=== PATIENT | male | born 1960 | race Caucasian/White ===

== ENCOUNTER → 2016-07-09 | Outpatient (CLI) | payer OTHER ==
[~2016-07-09] MED LIST: ASPI-435 PO; ATOR-26 PO; CYCL10TA6 PO; HYDR-5688 PO; LOSA1TAB PO; METO25TA3 PO; NITR0.4D6 SL; OMEP20CA9 PO
== END | disposition home or self-care (01) ==
LOC: C.LAB 03:00
DX: Z02.83 Encounter for blood-alcohol and blood-drug test (principal)

== ENCOUNTER → 2017-06-13 | Outpatient (CLI) | payer OTHER ==
--- NOTE | 2017-06-13 12:46 | DIAGNOSTIC IMAGING REPORT ---
LEFT TIBIA AND FIBULA 2 VIEWS CLINICAL HISTORY: Left leg injury. Finding: AP and lateral views of the left tibia and fibula are obtained. No prior studies are available for comparison at the time of dictation. The skeletal structures are well mineralized. There is no radiographic evidence of left tibial or fibular fracture. The ankle joint is grossly maintained. The overlying soft tissues are within normal limits. IMPRESSION: There is no radiographic evidence of left tibial or fibular fracture. Electronically signed by: Roe Stewart M.D. 06/13/2017 12:44 PM Dictated Date/Time: 06/13/2017 12:43 PM
--- NOTE | 2017-06-13 12:47 | DIAGNOSTIC IMAGING REPORT ---
L KNEE 1 OR 2 VIEWS ROUTINE CLINICAL HISTORY: Left lower leg injury. COMPARISON: Knee radiograph June 03, 2013. FINDINGS: Note is made of a 3.2 cm juxtacortical sclerotic lesion within the distal medial metadiaphysis of the left femur which is similar to exam of October. This has benign imaging characteristics. This has a narrow zone of transition. Alignment of the left knee is anatomic. No acute fracture is identified. There is a large left knee joint effusion without lipohemarthrosis. Joint spaces are preserved. IMPRESSION: 1. No acute fracture. 2. Large left knee joint effusion. 3. No change in a 3.2 cm sclerotic lesion within the distal medial metadiaphysis of the left femur since exam of June 03, 2013. Stability and imaging appearance consistent with a benign etiology. Electronically signed by: Harjinder Roman M.D. 06/13/2017 12:46 PM Dictated Date/Time: 06/13/2017 12:43 PM
== END | disposition home or self-care (01) ==
LOC: C.RAD1850 12:23
PROVIDERS: ATTEND Family Medicine
DX: S89.92XA Unspecified injury of left lower leg, initial encounter (principal); X58.XXXA Exposure to other specified factors, initial encounter

== ENCOUNTER 2025-02-01 14:31 | Inpatient (IN) ==
[2025-02-01] MEDS: NITROGLYCERIN SL 0.4 MG/TAB TAB SL PRN (14:52)
[2025-02-01] MEDS: ASPIRIN CHEW 324 MG PO STA (14:52)
[2025-02-01 15:00] LABS: Hematocrit (blood only) 49.0 % (42.0-52.0); Hemoglobin 17.6 g/dl (14.0-18.0); Immature Granulocytes # (auto) 0.02 K/uL (0.01-0.20); Immature Granulocytes % (auto) 0.3 %; Mean Corpuscular Hemoglobin 32.0 pg (25.0-34.0); Mean Corpuscular Volume 89.1 fL (80.0-100.0); Platelet Count 203 K/uL (130-400); RDW Standard Deviation 43.5 fL (36.4-46.3); Red Blood Count 5.50 M/uL (4.70-6.10); White Blood Count 7.64 K/ul (4.8-10.8)
--- NOTE | 2025-02-01 15:13 | XRay Report ---
XR chest 2V PA/lateral CLINICAL HISTORY: Chest pain, nonspecific COMPARISON STUDY: 12/14/2019 FINDINGS: Heart size and pulmonary vasculature are normal. No consolidation or pleural effusion. No p neumothorax. No displaced rib fractures seen. IMPRESSION: No acute findings. ACT 112: Negative or not required by law. Electronically signed by: Don Way M.D. 02/01/2025 3:11 PM
[2025-02-01 15:18] LABS: Alanine Aminotransferase 19.0 U/L (7-52); Albumin Globulin Ratio 1.0 (0.9-2); Alkaline Phosphatase 78.0 U/L (34-104); Anion Gap 9.0 (3-11); Bilirubin,Total 0.8 mg/dl (0.2-1.0); Blood Urea Nitrogen 12.0 mg/dl (6-23); Calcium 9.3 mg/dl (8.6-10.3); Carbon Dioxide 28.0 mmol/L (21-32); Chloride 91.0 mmol/L (98-107); Creatinine Clr Calc Pharmacy 130.6 ml/min; Globulin 3.9 gm/dl (2.5-4.0); Glucose 103.0 mg/dl (70-99(Fasting)); Lipase 22.0 U/L (11-82); Potassium 4.3 mmol/L (3.5-5.1); Sodium 128.0 mmol/L (136-145); Total Protein 7.9 gm/dl (6.0-8.3)
--- NOTE | 2025-02-01 15:35 | Emergency Department Note ---
Impression & Plan Unstable angina, Elevated d-dimer, Complicated urinary tract infection, Gross hematuria ED Provider Note NAME: ISABEL MONTANO AGE: 64 SEX: M : 1960 ARRIVES VIA: Walk-In INFORMANT: Patient, ED PROVIDER(S): Audi Leonardo DO CHIEF COMPLAINT: chest pain HPI: This is a 64-year-old male with the PMHx of CAD s/p PCI, hypertension, hyperlipidemia, alcohol use disorder, tobacco use disorder presenting to [facility] for further evaluation of chest pain. The patient reports he has had left- sided chest pain that is sharp and stabbing since Friday. Patient reports that this occurs usually with exertional activities. He states with rest the pain improves. He reports mild shortness of breath associated with this. He also notes that he has had urinary frequency and dysuria. Noticed blood in his urine today. They deny fever or chills. No cough or congestion. They deny abdominal pain, nausea and vomiting. No recent changes in bowel movements. Patient denies recent changes in medications or OTC supplements. Patient offers no other complaints, today. ADDITIONAL HISTORY OBTAINED: Per HPI Chronic Medical/Social Conditions Affecting Care: Per HPI PAST MEDICAL HISTORY: See Below PAST SURGICAL HISTORY: See Below FAMILY HISTORY: See Below SOCIAL HISTORY: See Below HOME MEDICATIONS: See Below ALLERGIES: See Below VITALS: See Below PHYSICAL EXAMINATION: GENERAL: Sitting up in bed, alert, well appearing, well nourished, no distress, non-toxic EYE EXAM: normal conjunctiva. PERRL and EOM's grossly intact. OROPHARYNX: no exudate, no erythema, lips, buccal mucosa, and tongue normal and mucous membranes are moist NECK: supple, no nuchal rigidity, no adenopathy, non-tender LUNGS: Clear to auscultation. Normal chest wall mechanics HEART: no murmurs, tachycardic rate, regular rhythm, 2+ distal pulses, warm and well perfused ABDOMEN: abdomen soft, non-tender, no masses, no rebound or guarding. BACK: Back is symmetrical on inspection and there is no deformity, no midline tenderness, no CVA tenderness. SKIN: no rashes and no bruising UPPER EXTREMITIES: upper extremities are grossly normal. LOWER EXTREMITIES: trace lower extremity edema NEURO EXAM: Normal sensorium, GCS 15, normal speech, no gross weakness of arms, no gross weakness of legs. MEDICAL DECISION MAKING: Differential diagnoses includes but not limited to ACS, stable vs unstable angina, dysrhythmia, viral URI, pneumonia, pericarditis, pneumothorax, costochondritis, MSK strain, PE, hypertensive emergency, psychological causes, esophageal reflux, gastritis, Complicated UTI, kidney stone In summary, this is a 64 year old male who presented with chest pain. Differential as above. Nursing notes and pertinent past medical records reviewed. Vital signs reviewed and the patient is mildly hypertensive and tachycardic but otherwise afebrile and hemodynamically stable. History and presentation revealed prior history of CAD with an inferior STEMI that required PCI. Patient notes that his symptoms are not similar but he is concerned that this may be related to his heart. Unclear if he is compliant with his medications. Based on his urinary symptoms, I am suspicious for a complicated UTI. He has no CVA tenderness or evidence of peritonitis that would make necessary for CT abdomen/pelvis. Physical examination revealed as above. As a result of my initial evaluation, plan for serial troponin levels and EKGs. Will load with aspirin. Patient was given sublingual nitroglycerin on arrival to the emergency department. Diagnostics interpreted by me include EKG and cardiac monitoring as listed below: -Cardiac Monitoring: An order was placed for continuous cardiac monitoring. The monitor shows a rate of 80-110 with regular rhythm. -ECG: EKG independently interpreted by me reveals sinus tachycardia at a rate of 103 bpm. There are PACs present on this rhythm strip. No significant ST segment changes to suggest STEMI. Intervals are otherwise within normal limits. Patient completed laboratory studies and imaging. Results independently interpreted by me are stable hemoglobin. No anemia. No leukocytosis. Does have mild hyponatremia. Suspect he might be mildly dehydrated. Will provide gentle IV fluid bolus. Troponin was normal. Repeat EKG obtained as the patient was having further pain. Reveals sinus tachycardia at a rate of [address] segment changes to suggest STEMI. Intervals are otherwise within normal limits. I did consider the diagnosis of pulmonary embolism but he has no respiratory complaints. Do feel his symptoms are more related to unstable angina. Patient will likely be admitted but pending urinalysis for further screening of his hematuria that he has reported as well as urinary frequency. The patient's pain is relieved by sublingual nitroglycerin. He does have significant cardiovascular history. Given concerns for unstable angina, [facility] cardiology made aware of the patient and agrees with admission on telemetry. Patient will need to have serial troponins as well as EKGs. He was loaded with aspirin on arrival to the emergency department. The hospitalist team requested D-dimer testing. This was ordered and it was elevated. I ordered CT PE study. CT PE study was independently interpreted by me as negative for pulmonary embolism. Patient was started on low-dose heparin without bolus. Ultimately, the decision was made to admit the patient for unstable angina and complicated UTI with gross hematuria. I discussed the case with the hospitalist service via telephone/Tiger[employer] and they are agreeable to admit the patient to their services. Based on the above, including the patient's age, coexisting illnesses, labs, imaging, and exam findings the decision to treat as an inpatient. I discussed the patient with the hospitalist team who recommended admission to their services. They received the medications, treatments, interventions indicated above and their condition remained guarded. I discussed my findings with the patient and their family and they understand and agree with the treatment plan. All patient / family questions were answered to their satisfaction. Consults/Care Managements Discussions: Per [facility] ER treatment provided: See above Procedures:none Critical Care: I have personally spent 35 minutes of critical care time in direct management of this patient. This includes bedside care, interpretation of diagnostic studies, and testing, discussion with consultants, patient, and family members, and other require inpatient management activities. This 35 minutes is in excess of all separately billable procedures. The chart was completed utilizing [employer] Speech voice recognition software. Grammatical errors, random word insertions, pronoun errors, and incomplete sentences are an occasional consequence of this system due to software limitations, ambient noise, and hardware issues. Any formal questions or concerns about the content, text, or information contained within the body of this dictation should be directly addressed to the physician for clarification. Past Med/Surg History Problem List (Updated 02/02/25 @ 16:20 by Audi Leonardo DO) Gross hematuria (Acute) Complicated urinary tract infection (Acute) Elevated d-dimer (Acute) Unstable angina (Acute) Hyponatremia Hematuria UTI (urinary tract infection) Acute OK, inferior wall (Acute) Inferior OK (Chronic) Chest pain (Acute) Chest pain GERD (gastroesophageal reflux disease) Alcohol dependence Tobacco abuse Encounter for pre-operative examination Hypertension (Chronic) Coronary arteriosclerosis Heart disease (Chronic) Medical History H/O ventricular fibrillation post-op VF after cardiac cath (2014) converted with single ICD shock/amiodarone drip CAD (coronary artery disease) chronic total occlusion of the pRCA with acute thrombosis in the proximal vessel s/p thrombectomy and medical therapy (attempted PCI but d/t chronic occlusion further down RCA, unable to intervene per cardiology records), follows with Dr. Partida Hyperlipidemia GERD (gastroesophageal reflux disease) controlled Myocardial Infarction 2014 Surgical History History of carpal tunnel surgery of right wrist History of sinus surgery History of fusion of cervical spine C3-C7 -- ROM WNL History of fusion of lumbar spine L2-S1, x4 total History of cardiac catheterization 2015- CAD, no stents (unsuccessful PCI) Family History Other Heart disease No family history of adverse response to anesthesia Social History Smoking Status: Current every day smoker Tobacco Type: Cigarettes Cigarettes Per Day: 1/2 pack cigarettes per day; Second Hand Exposure: No; Do You Dip or Chew Tobacco: No; Hx Alcohol Use: Yes Alcohol type: beer Hx Substance Use: No Preferred Language: Afghan Communication Ability: Effective Visual Impairment: No Limitations Billboard Poster Required: No Beliefs That Will Affect Care: None marital status: Current Living Situation: Family Current Living Situation Comment: lives with mother current occupational status: employed and disabled 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 [employer] Other Information That Helps Us Care for You: No Feels Safe at Home: Yes Safety Concerns: Feels Safe At This Time Assistive Devices: None Allergies Allergies Allergy/AdvReac Type Severity Reaction Status Date / Time morphine Allergy Severe Anaphylaxis Verified 02/01/25 16:15 bupropion Allergy Intermediate Hives Verified 02/01/25 16:15 varenicline Allergy Intermediate Rash Verified 02/01/25 16:15 adhesive Allergy Mild Rash Verified 02/01/25 16:15 latex Allergy Unknown Rash Verified 02/01/25 16:15 ADHESIVE TAPE AdvReac Intermediate Rash Uncoded 02/01/25 16:15 Home Meds Previous Rx's Medication Instructions Recorded aspirin 81 mg tablet,delayed 81 mg PO QAM 30 days #30 tabs 02/02/25 release atorvastatin 40 mg tablet 40 mg PO QAM 30 days #30 tabs 02/02/25 metoprolol succinate 25 mg capsule 25 mg PO DAILY #30 ea 02/02/25 sprinkle, ext. release 24 hr nitroglycerin 0.2 mg/hr 1 patch transdermal QAM 30 days 02/02/25 transdermal 24 hour patch #30 ea Results & Data (ED) Vital Signs Vital Signs - 24 hr 02/01/25 16:30 02/01/25 17:00 Pulse Rate 91 H 87 Pulse Rate from SpO2 Sensor 91 H 87 Respiratory Rate 14 Blood Pressure 159/102 H 157/98 H Blood Pressure Mean 134 117 Pulse Oximetry 95 94 Oxygen Delivery Method Room Air Room Air Laboratory Data 02/02/25 05:20 02/02/25 05:20 Lab Results 02/01/25 02/01/25 02/01/25 Range/Units 14:45 15:20 17:43 WBC 7.64 (4.8-10.8) K/ul RBC 5.50 (4.70-6.10) M/uL Hgb 17.6 (14.0-18.0) g/dl Hct 49.0 (42.0-52.0) % MCV 89.1 (80.0-100.0) fL MCH 32.0 (25.0-34.0) pg MCHC 35.9 (32.0-36.0) g/dL RDW Std Deviation 43.5 (36.4-46.3) fL RDW Coeff of [place]ham 13.2 (11.5-14.5) % Plt Count 203 (130-400) K/uL MPV 8.8 L (9.4-12.4) fL Immature Gran % (Auto) 0.3 % Neut % (Auto) 81.4 % Lymph % (Auto) 9.3 % [place] % (Auto) 8.2 % Eos % (Auto) 0.3 % Baso % (Auto) 0.5 % Neut # (Auto) 6.22 (1.40-6.50) K/uL Lymph # (Auto) 0.71 L (1.20-3.40) K/uL Florence # (Auto) 0.63 H (0.11-0.59) K/uL Eos # (Auto) 0.02 (0.00-0.50) K/uL Baso # (Auto) 0.04 (0.00-0.20) K/uL Immature Gran # (Auto) 0.02 (0.01-0.20) K/uL PT 11.0 (9.0-12.0) Seconds INR 1.0 (0.9-1.1) APTT 29 (21-31) Seconds PTT Ratio 1.1 D-Dimer 1190 H* (0-500) ug/L FEU Sodium 128 L (136-145) mmol/L Potassium 4.3 (3.5-5.1) mmol/L Chloride 91 L (98-107) mmol/L Carbon Dioxide 28 (21-32) mmol/L Anion Gap 9 (3-11) BUN 12 (6-23) mg/dl Creatinine 0.80 (0.6-1.4) mg/dl Est Cr Clr Drug Dosing 130.6 ml/min eGFR 98.83 BUN/Creatinine Ratio 15.0 (10-20) Glucose 103 H (70-99(Fasting)) mg/dl Osmolality 270 L (280-300) mOsm/kg Calcium 9.3 (8.6-10.3) mg/dl Total Bilirubin 0.8 (0.2-1.0) mg/dl AST 24 (13-39) U/L ALT 19 (7-52) U/L Alkaline Phosphatase 78 (34-104) U/L Troponin I High Sens 11.0 11.0 (0-20) pg/ml Total Protein 7.9 (6.0-8.3) gm/dl Albumin 4.0 (3.4-5.0) gm/dl Globulin 3.9 (2.5-4.0) gm/dl Albumin/Globulin Ratio 1.0 (0.9-2) Lipase 22 (11-82) U/L TSH 0.751 (0.300-4.500) uIu/ml Urine Color Dark Yellow Urine Appearance Cloudy A (Clear) Urine pH 6.0 (4.5-7.5) Ur Specific [place] 1.017 (1.000-1.030) Urine Protein 2+ H (Negative) Urine Glucose (UA) Negative (Negative) Urine Ketones 1+ H (Negative) Urine Blood 3+ H (Negative) Urine Nitrite Positive A (Negative) Urine Bilirubin Negative (Negative) Urine Urobilinogen Negative (Negative) Ur Leukocyte Esterase 3+ H (Negative) Urine WBC (Auto) >50 H (0-5) /hpf Urine RBC (Auto) >20 H (0-2) /hpf U Hyaline Cast (Auto) 3-5 H (0-2) /lpf U Epithel Cells (Auto) 0-2 (0-2) /hpf Urine Bacteria (Auto) 3+ H (None Seen) Urine Osmolality 519 (500-800) mOsm/kg Ur Random Sodium 33 mmol/L Urine Comment Administered Medications Aspirin (Aspirin 81 Mg Ectab) 81 mg PO [facility] Stop: 03/04/25 08:59 Last Admin: 02/02/25 08:34 Dose: 81 mg Documented By: DMITRIY Atorvastatin Calcium (Atorvastatin 40 Mg Tab) 40 mg PO [facility] Stop: 03/03/25 20:30 Last Admin: 02/02/25 08:34 Dose: 40 mg Documented By: Admin: 02/01/25 22:02 Dose: 40 mg Documented By: mike Metoprolol Tartrate (Metoprolol Tartrate 25 Mg Tab) 25 mg PO BID [facility] Stop: 03/03/25 20:59 Last Admin: 02/02/25 08:34 Dose: 25 mg Documented By: Admin: 02/01/25 20:41 Dose: 25 mg Documented By: mike Nitroglycerin (Nitroglycerin Sl 0.4 Mg/Tab Tab) 0.4 mg SL Q5M PRN PRN Reason: Chest Pain Stop: 03/03/25 14:41 Last Admin: 02/01/25 15:25 Dose: 0.4 mg Documented By: Admin: 02/01/25 14:52 Dose: 0.4 mg Documented By: KARINA Nitroglycerin (Nitroglycerin 0.2 Mg/Hr Patch) 1 patch TD [facility] Stop: 03/04/25 11:14 Last Admin: 02/02/25 12:55 Dose: 1 patch Documented By: DMITRIY Pantoprazole Sodium (Pantoprazole 40 Mg Tab) 40 mg PO [facility] Stop: 03/04/25 08:59 Last Admin: 02/02/25 08:34 Dose: 40 mg Documented By: DMITRIY Discontinued Medications Aspirin (Aspirin Chew 324 Mg) 324 mg PO NOW STA Stop: 02/01/25 14:43 Last Admin: 02/01/25 14:52 Dose: 324 mg Documented By: KARINA Heparin Sodium (Porcine) (Heparin Sod (Porcine) 1000 Unit/Ml) 4,500 units IV NOW ONE Stop: 02/02/25 04:36 Last Admin: 02/02/25 05:01 Dose: 4,500 units Documented By: LUIS Co-signed By: LESTER Heparin Sodium/Dextrose (Heparin Iv Adult Wt-Based Low-Dose *No* Initial Bolus Protocol) 1 each IV ONE STA; Protocol Stop: 02/01/25 17:52 Last Admin: 02/01/25 18:33 Dose: Not Given Documented By: KARINA Sodium Chloride (Nss) 500 mls @ 999 mls/hr IV .Q31M ONE Stop: 02/01/25 16:08 Last Infusion: 02/01/25 16:25 Dose: Infused Documented By: Admin: 02/01/25 15:43 Dose: 999 mls/hr Documented By: KARINA Ceftriaxone Sodium (Rocephin) 1,000 mg in 50 mls @ 100 mls/hr IV NOW STA Stop: 02/01/25 16:43 Last Infusion: 02/01/25 17:06 Dose: Infused Documented By: Admin: 02/01/25 16:22 Dose: 100 mls/hr Documented By: KARINA Heparin Sodium/Dextrose (Heparin 31634 Unit/500 Ml D5w) 25,000 units in 500 mls @ 26 mls/hr IV .[id number] [facility]; Protocol Stop: 03/03/25 18:14 Last Titration: 02/02/25 11:46 Dose: Infused Documented By: DMITRIY Co-signed By: CHANDNI Titration: 02/02/25 04:55 Dose: 1,300 units/hr, 26 mls/hr Documented By: LUIS Co-signed By: LESTER Admin: 02/01/25 18:36 Dose: 1,000 units/hr, 20 mls/hr Documented By: KARINA Co-signed By: ANN Ioversol (Optiray 320 125ml) 118 ml IV ONCE ONE Stop: 02/01/25 17:24 Last Admin: 02/01/25 17:23 Dose: 118 ml Documented By: WIN Metoprolol Tartrate (Metoprolol Tartrate 1 Mg/Ml Vial) 5 mg IV NOW STA Stop: 02/01/25 17:47 Last Admin: 02/01/25 18:15 Dose: 5 mg Documented By: KARINA Imaging Data Radiologist's Impression: Chest X-Ray 02/01/25 14:42 XR chest 2V PA/lateral CLINICAL HISTORY: Chest pain, nonspecific COMPARISON STUDY: 12/14/2019 FINDINGS: Heart size and pulmonary vasculature are normal. No consolidation or pleural effusion. No pneumothorax. No displaced rib fractures seen. IMPRESSION: No acute findings. ACT 112: Negative or not required by law. Electronically signed by: Don Way M.D. 02/01/2025 3:11 PM Chest CTA 02/01/25 17:10 CT pulmonary angiogram with IV contrast History: Chest pain COMPARISON: None TECHNIQUE: CT angiography of the chest was performed without IV contrast followed by IV contrast, including 3D post processing CTA image reconstruction. Dose reduction techniques were achieved by using automatic exposure control and/or adjustment of mA and/or kV according to patient size and/or use of iterative reconstruction technique. FINDINGS: Diagnostic quality: Adequate There is no evidence for pulmonary embolism. The heart is not enlarged. Heavy coronary calcification. There is no pericardial effusion. There are no abnormally enlarged hilar or mediastinal lymph nodes. The central tracheobronchial tree is clear. The lungs are clear. There is no pleural effusion. Limited visualized upper abdomen. No destructive osseous changes are seen. IMPRESSION: No evidence for pulmonary embolism. Electronically signed by Cortez Mayers 02-01-2025 5:39 PM Discharge Plan Visit Data Chief Complaint: Chest Pain Stated Complaint: CHEST PAIN, PEEING BLOOD ED Provider: Audi Leonardo Discharge Problem: Unstable angina, Elevated d-dimer, Complicated urinary tract infection, Gross hematuria Patient Disposition: Admitted As Inpatient Condition: Serious Discharge Instructions Interventions: ED Discharge Assessment Last Done: 02/01/25 22:30
[2025-02-01] MEDS: SODIUM CHLORIDE 0.9% 500 ML IV ONE (15:43)
[2025-02-01 15:47] LABS: Appearance Urine Cloudy (Clear); Bacteria Urine Automated 3+ (None Seen); Epithelial Cell Urine Auto 0-2 /hpf (0-2); Glucose Urine UA Negative (Negative); RBC Urine Automated >20 /hpf (0-2); WBC Urine Automated >50 /hpf (0-5)
[2025-02-01 15:50] LABS: INR 1.0 (0.9-1.1); Partial Thromboplastin Time 29 Seconds (21-31); Prothrombin Time 11.0 Seconds (9.0-12.0)
[2025-02-01] MEDS: cefTRIAXone SODIUM 1,000 MG/50 ML BAG IV STA (16:22)
--- NOTE | 2025-02-01 16:32 | History & Physical Report ---
Date of Service February 01, 2025 Assessment & Plan (1) Chest pain: (2) CAD (coronary artery disease): (3) Hematuria: (4) UTI (urinary tract infection): (5) Hyponatremia: (6) Hypertension: Plan This patient is a 64-year-old male with a history of CAD s/p inferior STEMI in 2014 without stent placement, history of alcohol use disorder, current smoker, Luna's esophagus, HTN, HLD, LICA moderate stenosis, hyponatremia, who has not followed with a primary care physician in over 5 years, presents to the ED with intermittent chest pains and development of gross hematuria and urinary frequency for the last 2 days. His chest pain was substernal and left-sided, came on at rest, nonradiating, not associated with nausea or shortness of breath, lasted a few minutes each time, and went away without intervention. This occurred approximately 6 times over the last 2 days but then today's episode was more severe in intensity which prompted him to come to the ED. The hematuria was blood-tinged urine without clots. He denies fevers or chills, flank pain or abdominal pain. He has not taken any medications in the last 5 years due to lack of health insurance and due to financial reasons. In the ED, his blood pressures were elevated, he had mild sinus tachycardia, was afebrile, and not hypoxic. His ECG was negative for acute ischemia, and his chest pain went away with nitroglycerin. His chest pain returned and again went away with nitroglycerin. He was found to be hyponatremic with a sodium of 128, had a normal troponin, and had evidence of a UTI on urinalysis. A CXR was negative. He was given ceftriaxone for the UTI. He will be admitted for unstable angina and a UTI. #Unstable angina/CAD s/p inferior STEMI without stent placement/HTN/heart murmur-given history and noncompliance with medical care due to financial issues over last 5 years, very concerning for progressive CAD and possible aortic stenosis given heart murmur, now with unstable angina. Initial troponin negative, no evidence of heart failure, no acute ischemia or heart blocks on ECG. He did get hypotensive with his second dose of nitroglycerin which then improved and remains hypertensive now. D-dimer elevated but CT angiogram chest negative for PE or dissection. Less likely but possible that this could be from esophageal spasm from acid reflux given history of Luna's esophagus that is currently untreated - Admit to PCU for telemetry monitoring - Give IV Lopressor 5 Mg x 1 now and then start metoprolol 25 mg p.o. twice daily - Trend serial troponin - Check echocardiogram - Give nitroglycerin as needed for angina - Heart healthy diet now and n.p.o. after midnight for possible cardiac catheterization on 02/02 - Consult cardiology - Start heparin drip, start aspirin 81 mg p.o. daily, start atorvastatin 40 mg daily first dose now - Check lipid panel and HgbA1c in the a.m. #LICA stenosis/HLD-noted on CT scan of the neck in 04/2024 to have less than 50% stenosis left greater than right of carotid arteries and has not had follow-up since then - Starting aspirin and statin - Follow as an outpatient #Hyponatremia-sodium 128 on arrival. Patient admits to only drinking 2 beers per day, 2 glasses of iced tea and 2 glasses of water daily. He is not taking any medications that could cause low sodium. Suspect possible that he is drinking more alcohol than he admits to but could have SIADH or hyponatremia or adrenal insufficiency less likely. Urine sodium 33 and urine osmolality 500 and he appears euvolemic. - Follow BMP in the AM - Check TSH, a.m. cortisol #UTI/gross hematuria-with 1 to 2 days of blood-tinged urine. No fevers or chills, no leukocytosis or flank pain. He is a current cigarette smoker and is at risk for bladder cancer but could also just be from ongoing UTI - Start ceftriaxone - Follow urine culture - Referred to urology as an outpatient for cystoscopy #Current smoker- -Encourage smoking cessation - Can use nicotine replacement as needed #Luna's esophagus-has a history of such but is not taking a PPI - Start PPI in the setting of taking aspirin therapy - Needs EGD as an outpatient once he can get insurance DVT prophylaxis-heparin drip Disposition-admit to PCU History of Present Illness Chief Complaint: Chest pain Primary Care Provider: NO PCP This patient is a 64-year-old male with a history of CAD s/p inferior STEMI in 2014 without stent placement, history of alcohol use disorder, current smoker, Luna's esophagus, HTN, HLD, LICA moderate stenosis, hyponatremia, who has not followed with a primary care physician in over 5 years, presents to the ED with intermittent chest pains and development of gross hematuria and urinary frequency for the last 2 days. His chest pain was substernal and left-sided, came on at rest, nonradiating, not associated with nausea or shortness of breath, lasted a few minutes each time, and went away without intervention. Th is occurred approximately 6 times over the last 2 days but then today's episode was more severe in intensity which prompted him to come to the ED. The hematuria was blood-tinged urine without clots. He denies fevers or chills, flank pain or abdominal pain. He has not taken any medications in the last 5 years due to lack of health insurance and due to financial reasons. In the ED, his blood pressures were elevated, he had mild sinus tachycardia, was afebrile, and not hypoxic. His ECG was negative for acute ischemia, and his chest pain went away with nitroglycerin. His chest pain returned and again went away with nitroglycerin. He was found to be hyponatremic with a sodium of 128, had a normal troponin, and had evidence of a UTI on urinalysis. A CXR was negative. He was given ceftriaxone for the UTI. He will be admitted for unstable angina and a UTI. Allergies Allergy/AdvReac Type Severity Reaction Status Date / Time morphine Allergy Severe Anaphylaxis Verified 02/01/25 16:15 bupropion Allergy Intermediate Hives Verified 02/01/25 16:15 varenicline Allergy Intermediate Rash Verified 02/01/25 16:15 adhesive Allergy Mild Rash Verified 02/01/25 16:15 latex Allergy Unknown Rash Verified 02/01/25 16:15 ADHESIVE TAPE AdvReac Intermediate Rash Uncoded 02/01/25 16:15 Home Medications Medication Instructions Recorded Confirmed Type No Known Home Medications 02/01/25 02/01/25 History Past Med/Surg History Problem List (Updated 02/01/25 @ 17:01 by Sue Stewart MD) Hyponatremia Hematuria UTI (urinary tract infection) Acute AK, inferior wall (Acute) Inferior AK (Chronic) Chest pain (Acute) Chest pain GERD (gastroesophageal reflux disease) Alcohol dependence Tobacco abuse Encounter for pre-operative examination Hypertension (Chronic) Coronary arteriosclerosis Heart disease (Chronic) Medical History H/O ventricular fibrillation post-op VF after cardiac cath (2014) converted with single ICD shock/amiodarone drip CAD (coronary artery disease) chronic total occlusion of the pRCA with acute thrombosis in the proximal vessel s/p thrombectomy and medical therapy (attempted PCI but d/t chronic occlusion further down RCA, unable to intervene per cardiology records), follows with Dr. Partida Hyperlipidemia GERD (gastroesophageal reflux disease) controlled Myocardial Infarction 2014 Surgical History History of carpal tunnel surgery of right wrist History of sinus surgery History of fusion of cervical spine C3-C7 -- ROM WNL History of fusion of lumbar spine L2-S1, x4 total History of cardiac catheterization 2015- CAD, no stents (unsuccessful PCI) Family History Other Heart disease No family history of adverse response to anesthesia Social History Smoking Status: Current every day smoker Tobacco Type: Cigarettes Cigarettes Per Day: 1/2 ppd x 20 years; Second Hand Exposure: No; Do You Dip or Chew Tobacco: No; Hx Alcohol Use: Yes Alcohol type: beer Hx Substance Use: No Preferred Language: Occitan Communication Ability: Effective Visual Impairment: No Limitations White Washer Required: No Beliefs That Will Affect Care: None marital status: Current Living Situation: Family Current Living Situation Comment: lives with mother current occupational status: employed and disabled 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 [employer] Feels Safe at Home: Yes Assistive Devices: Glasses Review of Systems Review of Systems: All systems reviewed & are unremarkable except as noted in HPI & below Physical Exam Constitutional: WD/WN, vitals as above Eyes: PERRL, conjunctivae normal, anicteric sclerae Neck: trachea midline, no thyromegaly Respiratory: normal respiratory effort, lungs clear to auscultation Cardiovascular: Rate/Rhythm: regular rate and regular rhythm Heart Sounds: + gallop and + murmur (2/6 systolic murmur at the RUSB) Vessels: dorsalis pedis pulses present Extremities: no edema Chest (Breasts): Chest: normal inspection of chest Gastrointestinal (Abdomen): normal bowel sounds, soft, nontender, no hepatosplenomegaly Musculoskeletal: Extremities: extremities normal to inspection; no cyanosis and no clubbing Skin: no rashes, warm and dry Neurologic: moves all extremities and awake; no focal motor deficits Psychiatric: A+Ox3, euthymic affect Lymphatic: no lymphedema Results & Data Results & Data Vital Signs (Past 12 Hours) Vital Signs Temp Pulse Resp BP Pulse Ox O2 Del Method 02/01/25 16:00 91 H 16 158/97 H 94 Room Air 02/01/25 15:42 103 H 02/01/25 15:36 88/72 L 02/01/25 15:30 106 H 13 92/66 L 93 Room Air 02/01/25 15:00 105 H 112/76 02/01/25 14:51 99 H 13 163/110 H 02/01/25 14:32 36.8 C 108 H 14 153/94 H 99 Room Air Laboratory Results CBC, PT/PTT/INR, CMP, serum osmolality, troponin, lipase, UA, urine osmolality, urine sodium reviewed Diagnostic Findings CXR reviewed ECG Additional Comments: ECG here on 02/01/2025 at 1440 with sinus tachycardia, rate 103, inferior infarct, no acute ischemic changes, unchanged from previous Code Status & VTE Plan Code Status Full code VTE Prophylaxis Plan VTE Prophylaxis will be ordered: Yes PG Care Time/CCT Total # of Minutes Spent Total Time Spent with Patient: Total time spent is greater than 50% in coordination of care (as documented) at patient's floor/unit and/or counseling patient: Coding Level of Care Code 06068 INT INP/OBS CARE 3/75MIN Diagnoses Chest pain R07.9 CAD (coronary artery disease) I25.10 Hematuria R31.9 UTI (urinary tract infection) N39.0 Hyponatremia E87.1 Hypertension I10
[2025-02-01] MEDS: OPTIRAY 320 125ml IV ONE (17:23)
--- NOTE | 2025-02-01 17:41 | CT Scan Report ---
CT pulmonary angiogram with IV contrast History: Chest pain COMPARISON: None TECHNIQUE: CT angiography of the chest was performed without IV contrast followed by IV contrast, including 3D post processing CTA image reconstruction. Dose reduction techniques were achieved by using automatic exposure control and/or adjustment of mA and/or kV according to patient size and/or use of iterative reconstruction technique. FINDINGS: Diagnostic quality: Adequate There is no evidence for pulmonary embolism. The heart is not enlarged. Heavy coronary calcification. There is no pericardial effusion. There are no abnormally enlarged hilar or mediastinal lymph nodes. The central tracheobronchial tree is clear. The lungs are clear. There is no pleural effusion. Limited visualized upper abdomen. No destructive osseous changes are seen. IMPRESSION: No evidence for pulmonary embolism. Electronically signed by Cortez Mayers 02-01-2025 5:39 PM
[2025-02-01] MEDS ORDERED: Heparin IV Adult Wt-Based Standard w/ INITIAL Bolus Protocol IV STA (17:46)
[2025-02-01] MEDS ORDERED: HEPARIN SOD (PORCINE) 1000 UNIT/ML IV ONE ×2 (18:01→18:15)
[2025-02-01] MEDS ORDERED: HEPARIN 25000 UNIT/500 ML D5W 25,000 UNITS/500 ML BAG IV SCH (18:15)
[2025-02-01] MEDS: METOPROLOL TARTRATE 1 MG/ML VIAL IV STA (18:15)
[2025-02-01] MEDS: Heparin IV Adult Wt-Based Low-Dose *NO* INITIAL Bolus Protocol IV STA (18:33)
[2025-02-01] MEDS: HEPARIN 25000 UNIT/500 ML D5W 25,000 UNITS/500 ML BAG IV SCH (18:36)
[2025-02-01 18:45] LABS: Thyroid Stimulating Hormone 0.751 uIu/ml (0.300-4.500)
[2025-02-01] MEDS ORDERED: ACETAMINOPHEN 325 MG TAB PO PRN (20:31)
[2025-02-01] MEDS ORDERED: POLYETHYLENE (MIRALAX) 17 GM PACK PO PRN (20:31)
[2025-02-01] MEDS ORDERED: ONDANSETRON INJ 2 MG/ML 2 ML VIAL IV PRN (20:31)
[2025-02-01] MEDS: METOPROLOL TARTRATE 25 MG TAB PO SCH (20:41)
[2025-02-01] MEDS: ATORVASTATIN 40 MG TAB PO SCH (22:02)
[2025-02-02 01:09] LABS: ANTI-Xa, UFH(UnfractionatedHep < 0.10 IU/ml (0.3-0.7)
[2025-02-02] MEDS ORDERED: Nursing to Pharmacy Communication SCH ×2 (04:15→05:15)
[2025-02-02] MEDS: HEPARIN SOD (PORCINE) 1000 UNIT/ML IV ONE (05:01)
[2025-02-02 05:41] LABS: Hematocrit (blood only) 44.2 % (42.0-52.0); Hemoglobin 15.1 g/dl (14.0-18.0); Immature Granulocytes # (auto) 0.01 K/uL (0.01-0.20); Immature Granulocytes % (auto) 0.2 %; Mean Corpuscular Hemoglobin 30.1 pg (25.0-34.0); Mean Corpuscular Volume 88.0 fL (80.0-100.0); Platelet Count 195 K/uL (130-400); RDW Standard Deviation 43.2 fL (36.4-46.3); Red Blood Count 5.02 M/uL (4.70-6.10); White Blood Count 5.72 K/ul (4.8-10.8)
[2025-02-02 05:55] LABS: Anion Gap 9.0 (3-11); Blood Urea Nitrogen 11.0 mg/dl (6-23); Calcium 8.5 mg/dl (8.6-10.3); Carbon Dioxide 25.0 mmol/L (21-32); Chloride 94.0 mmol/L (98-107); Cholesterol 97.0 mg/dl (0-200); Creatinine Clr Calc Pharmacy 146.2 ml/min; Glucose 103.0 mg/dl (70-99(Fasting)); HDL Cholesterol 34.0 mg/dl; Magnesium 2.2 mg/dl (1.7-2.4); Potassium 4.3 mmol/L (3.5-5.1); Sodium 128.0 mmol/L (136-145); Triglycerides 63.0 mg/dl (0-150)
[2025-02-02 08:09] LABS: Hemoglobin A1C 5.8 % (4.5-5.6)
[2025-02-02] MEDS: ASPIRIN 81 MG ECTAB PO SCH (08:34)
--- NOTE | 2025-02-02 09:54 | Cardiology Consultation ---
Date of Consultation February 02, 2025 History of Present Illness Attending Physician: Nitish Phillips Allergies Allergy/AdvReac Type Severity Reaction Status Date / Time morphine Allergy Severe Anaphylaxis Verified 02/01/25 16:15 bupropion Allergy Intermediate Hives Verified 02/01/25 16:15 varenicline Allergy Intermediate Rash Verified 02/01/25 16:15 adhesive Allergy Mild Rash Verified 02/01/25 16:15 latex Allergy Unknown Rash Verified 02/01/25 16:15 ADHESIVE TAPE AdvReac Intermediate Rash Uncoded 02/01/25 16:15 Home Medications Medication Instructions Recorded Confirmed Type No Known Home Medications 02/01/25 02/01/25 History Patient History Medical History H/O ventricular fibrillation post-op VF after cardiac cath (2014) converted with single ICD shock/amiodarone drip CAD (coronary artery disease) chronic total occlusion of the pRCA with acute thrombosis in the proximal vessel s/p thrombectomy and medical therapy (attempted PCI but d/t chronic occlusion further down RCA, unable to intervene per cardiology records), follows with Dr. Partida Hyperlipidemia GERD (gastroesophageal reflux disease) controlled Myocardial Infarction 2014 Surgical History History of carpal tunnel surgery of right wrist History of sinus surgery History of fusion of cervical spine C3-C7 -- ROM WNL History of fusion of lumbar spine L2-S1, x4 total History of cardiac catheterization 2015- CAD, no stents (unsuccessful PCI) Family History Other Heart disease No family history of adverse response to anesthesia Social History Smoking Status: Current every day smoker Tobacco Type: Cigarettes Cigarettes Per Day: 1/2 pack cigarettes per day; Second Hand Exposure: No; Do You Dip or Chew Tobacco: No; Hx Alcohol Use: Yes Alcohol type: beer Hx Substance Use: No Preferred Language: Samoan Communication Ability: Effective Visual Impairment: No Limitations Multicultural Internship Required: No Beliefs That Will Affect Care: None marital status: Current Living Situation: Family Current Living Situation Comment: lives with mother current occupational status: employed and disabled 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 [email or web address] Other Information That Helps Us Care for You: No Feels Safe at Home: Yes Safety Concerns: Feels Safe At This Time Assistive Devices: Glasses Review of Systems Review of Systems: All systems reviewed & are unremarkable except as noted in HPI & below Results & Data Vital Signs (Past 12 Hours) Vital Signs Temp Pulse Pulse Resp BP BP Pulse Ox 02/02/25 09:11 02/02/25 08:52 73 02/02/25 08:00 36.7 C 73 22 129/73 96 02/02/25 03:00 37.3 C 80 18 141/84 H 94 02/01/25 23:20 82 02/01/25 23:10 37.2 C 77 18 126/62 97 02/01/25 23:00 02/01/25 22:05 02/01/25 22:00 145/89 H 02/01/25 22:00 73 20 96 Pulse Ox O2 Del Method O2 Del Method 02/02/25 09:11 Room Air 02/02/25 08:52 02/02/25 08:00 Room Air 02/02/25 03:00 Room Air 02/01/25 23:20 02/01/25 23:10 Room Air 02/01/25 23:00 Room Air 02/01/25 22:05 95 Room Air 02/01/25 22:00 02/01/25 22:00 Laboratory Results Current Inpatient Medications Acetaminophen (Acetaminophen 325 Mg Tab) 650 mg PO Q4H PRN PRN Reason: Pain or Fever Stop: 03/03/25 20:30 Aspirin (Aspirin 81 Mg Ectab) 81 mg PO [facility] Stop: 03/04/25 08:59 Last Admin: 02/02/25 08:34 Dose: 81 mg Atorvastatin Calcium (Atorvastatin 40 Mg Tab) 40 mg PO [facility] Stop: 03/03/25 20:30 Last Admin: 02/02/25 08:34 Dose: 40 mg Heparin Sodium/Dextrose (Heparin 18777 Unit/500 Ml D5w) 25,000 units in 500 mls @ 26 mls/hr IV .[id number] [facility]; Protocol Stop: 03/03/25 18:14 Last Titration: 02/02/25 04:55 Dose: 1,300 units/hr, 26 mls/hr Ceftriaxone Sodium (Rocephin) 2,000 mg in 50 mls @ 100 mls/hr IV Q24H [facility] Stop: 02/05/25 16:29 Metoprolol Tartrate (Metoprolol Tartrate 25 Mg Tab) 25 mg PO BID [facility] Stop: 03/03/25 20:59 Last Admin: 02/02/25 08:34 Dose: 25 mg Nitroglycerin (Nitroglycerin Sl 0.4 Mg/Tab Tab) 0.4 mg SL Q5M PRN PRN Reason: Chest Pain Stop: 03/03/25 14:41 Last Admin: 02/01/25 15:25 Dose: 0.4 mg Ondansetron HCl (Ondansetron Inj 2 Mg/Ml 2 Ml Vial) 4 mg IV Q6H PRN PRN Reason: Nausea Stop: 03/03/25 20:30 Pantoprazole Sodium (Pantoprazole 40 Mg Tab) 40 mg PO QAM [facility] Stop: 03/04/25 08:59 Last Admin: 02/02/25 08:34 Dose: 40 mg Polyethylene Glycol (Polyethylene (Miralax) 17 Gm Pack) 17 gm PO DAILY PRN PRN Reason: Constipation Stop: 03/03/25 20:30
[2025-02-02 12:29] LABS: ANTI-Xa, UFH(UnfractionatedHep 0.13 IU/ml (0.3-0.7)
[2025-02-02 12:43] VITALS: RESP 18; TEMP 97.5; O2SAT 98
[2025-02-02] MEDS: NITROGLYCERIN 0.2 MG/HR PATCH TD SCH (12:55)
--- NOTE | 2025-02-02 15:00 | Discharge Summary ---
Date of Service February 02, 2025 Admission HPI Per Admitting Provider This patient is a 64-year-old male with a history of CAD s/p inferior STEMI in 2015 without stent placement, history of alcohol use disorder, current smoker, Luna's esophagus, HTN, HLD, LICA moderate stenosis, hyponatremia, who has not followed with a primary care physician in over 5 years, presents to the ED with intermittent chest pains and development of gross hematuria and urinary frequency for the last 2 days. His chest pain was substernal and left-sided, came on at rest, nonradiating, not associated with nausea or shortness of breath, lasted a few minutes each time, and went away without intervention. This occurred approximately 6 times over the last 2 days but then today's episode was more severe in intensity which prompted him to come to the ED. The hematuria was blood-tinged urine without clots. He denies fevers or chills, flank pain or abdominal pain. He has not taken any medications in the last 5 years due to lack of health insurance and due to financial reasons. In the ED, his blood pressures were elevated, he had mild sinus tachycardia, was afebrile, and not hypoxic. His ECG was negative for acute ischemia, and his chest pain went away with nitroglycerin. His chest pain returned and again went away with nitroglycerin. He was found to be hyponatremic with a sodium of 128, had a normal troponin, and had evidence of a UTI on urinalysis. A CXR was negative. He was given ceftriaxone for the UTI. He will be admitted for unstable angina and a UTI. Admission Exam Per Admitting Provider Constitutional: WD/WN, vitals as above Eyes: PERRL, conjunctivae normal, anicteric sclerae Neck: trachea midline, no thyromegaly Respiratory: normal respiratory effort, lungs clear to auscultation Cardiovascular: Rate/Rhythm: regular rate and regular rhythm Heart Sounds: + gallop and + murmur (2/6 systolic murmur at the RUSB) Vessels: dorsalis pedis pulses present Extremities: no edema Chest (Breasts): Chest: normal inspection of chest Gastrointestinal (Abdomen): normal bowel sounds, soft, nontender, no hepatosplenomegaly Musculoskeletal: Extremities: extremities normal to inspection; no cyanosis and no clubbing Skin: no rashes, warm and dry Neurologic: moves all extremities and awake; no focal motor deficits Psychiatric: A+Ox3, euthymic affect Lymphatic: no lymphedema Principal Diagnosis Unstable Angina Discharge Exam GA: well groomed, well nourished male in no apparent distress. AAOx3 HEENT: head normocephalic, atraumatic. EOMI. No conjunctival pallor RESP: vesicular breath sounds b/l. No wheezes, rhonchi, or rales. Cough present at times. CARDIOVASCULAR: S1 and S2 heard. Systolic murmur, no rubs, or gallops appreciate . Radial pulses 2+ b/l GI: Normoactive bowel sounds, no tenderness or masses felt to palpation MSK: no gross abnormalities or focal deficits SKIN: warm, dry PSYCH: appropriate mood and affect NEURO: no focal deficits Discharge Data Allergies Allergy/AdvReac Type Severity Reaction Status Date / Time morphine Allergy Severe Anaphylaxis Verified 02/01/25 16:15 bupropion Allergy Intermediate Hives Verified 02/01/25 16:15 varenicline Allergy Intermediate Rash Verified 02/01/25 16:15 adhesive Allergy Mild Rash Verified 02/01/25 16:15 latex Allergy Unknown Rash Verified 02/01/25 16:15 ADHESIVE TAPE AdvReac Intermediate Rash Uncoded 02/01/25 16:15 Consultations 02/01/25 16:40 ED Decision to Admit Stat 02/01/25 17:58 Consult Cardiology Routine Ordered Studies 02/01/25 17:10 CT angio chest PE protocol Stat Hospital Course (1) Unstable angina: (2) Gross hematuria: (3) Hyponatremia: Plan This patient is a 64-year-old male with a history of CAD s/p inferior STEMI in 2014 without stent placement, history of alcohol use disorder, current smoker, Luna's esophagus, HTN, HLD, LICA moderate stenosis, hyponatremia, who has not followed with a primary care physician in over 5 years, presents to the ED with intermittent chest pains and development of gross hematuria and urinary frequency for the last 2 days. His chest pain was substernal and left-sided, came on at rest, nonradiating, not associated with nausea or shortness of breath, lasted a few minutes each time, and went away without intervention. Thi s occurred approximately 6 times over the last 2 days but then today's episode was more severe in intensity which prompted him to come to the ED. The hematuria was blood-tinged urine without clots. He denies fevers or chills, flank pain or abdominal pain. He has not taken any medications in the last 5 years due to lack of health insurance and due to financial reasons. In the ED, his blood pressures were elevated, he had mild sinus tachycardia, was afebrile, and not hypoxic. His ECG was negative for acute ischemia, and his chest pain went away with nitroglycerin. His chest pain returned and again went away with nitroglycerin. He was found to be hyponatremic with a sodium of 128, had a normal troponin, and had evidence of a UTI on urinalysis. A CXR was negative. He was given ceftriaxone for the UTI. He is admitted for unstable angina and a UTI. #Unstable angina/CAD s/p inferior STEMI without stent placement/HTN/heart murmur-given history and noncompliance with medical care due to financial issues over last 5 years, very concerning for progressive CAD and possible aortic stenosis given heart murmur, now with unstable angina. Troponin x4 negative, no evidence of heart failure, no acute ischemia or heart blocks on ECG. CTA Chest showed heavy coronary calcification. TTE pending at time of discharge, follow results as outpatient. Patient refused heart catheterization regardless of what echo shows. - Metoprolol 25mg PO qdaily - Nitroglycerin 0.2mg prn for angina - aspirin 81 mg PO daily - atorvastatin 40 mg PO daily - heart healthy diet #LICA stenosis/HLD-noted on CT scan of the neck in 04/2024 to have less than 50% stenosis left greater than right of carotid arteries and has not had follow-up since then - continue aspirin and statin - Follow as an outpatient #Hyponatremia-stable - follow as an outpatient #UTI/gross hematuria-with 1 to 2 days of blood-tinged urine. No fevers or chills, no leukocytosis or flank pain. He is currently asymptomatic. - s/p 1 dose ceftriaxone - if develop sx; treat as complicated UTI as outpatient - follow-up outpatient with primary care - consider referral to urology for outpatient management of hematuria once insured #Current smoker #ETOH Use -Encourage smoking cessation -Encourage alcohol cessation #Luna's esophagus-has a history of such but is not taking a PPI - continue Pantoprazole 40mg qdaily in the setting of taking aspirin therapy - consider EGD as an outpatient once he can get insurance Total Time Total Time Spent Total Time Spent (In Minutes): see attending physician attestation Discharge Plan Discharge Items Patient Disposition: Home - Self-Care Reason For Visit: UNSTABLE ANGINA Discharge Diagnosis: unstable angina Condition on Discharge: Serious Activity: Resume your previous activity Non-emergency contact: Primary Care Provider Call non-emergency contact if: you have any medication questions and your symptoms worsen Follow-up/Referrals: PCP,NO [Primary Care Provider] - Diet: Heart Healthy Addtl Attending Provider Instructions: You were admitted to the hospital for work up of your chest pain. Based on your previous history and current symptoms, our cardiology team would strongly recommend undergoing a repeat cardiac catheterization. We understand that you have your reasons for refusing, and ultimately it is your decision and we will respect your wishes. However, it is also important to acknowledge that leaving this problem unaddressed puts you at much higher risk for a major cardiovascular event. In order to reduce your risk, we recommend medication management as noted below. Lastly, our case management team will try to assist with enrolling in health insurance. It will be imperative that you maintain regular contact with your doctors in the outpatient setting. If you are not able to get health insurance, please consider being seen at [facility], a free clinic in [place]. They are located at [address], [place] [address]. If you pursue this option, please call in advance ([phone]) to verify your eligibility and to schedule an appointment. New medications: Metoprolol: Please take one 25mg tablet once daily Aspirin: Please take a daily baby aspirin (81mg) Nitroglycerin 0.2mg/hr: Please replace patch once daily at the same time each day Atorvastatin: Please take one 40mg tab daily Pantoprazole: Please take one 40mg tab daily Thank you for allowing us to participate in your care. Pending Studies at Discharge: Yes (TTE read pending (pt refuses cath irrespective of result)) Stand-Alone Forms: My [employer], Smoking Cessation Medications and DC Order Prescriptions: New atorvastatin 40 mg Tablet 40 mg PO QAM 30 Days Qty: 30 0RF nitroglycerin 0.2 mg/hr Patch 24 Hour 1 patch transdermal QAM 30 Days Qty: 30 0RF aspirin 81 mg Tablet,Delayed Release (Dr/Ec) 81 mg PO QAM 30 Days Qty: 30 0RF metoprolol succinate 25 mg capsule,sprinkle,ER 24hr 25 mg PO DAILY Qty: 30 0RF pantoprazole 40 mg tablet,delayed release (DR/EC) 40 mg PO DAILY Qty: 30 0RF Discharge Orders: Discharge Order (Routine); Ordered 02/02/25 Ordered By: Mazin Carlisle Admission Data Admit Date/Time: 02/01/25 17:56 Attending Provider: Nitish Phillips Admit Provider: Sue Stewart Primary Care Provider: PCP,NO Other Providers: Bay Mcgrath; Sue Stewart Other Interventions: Discharge Summary Assessment (RN) Last Done: 02/02/25 16:14 Resident Activity Tracking Resident Involvement: Resident Care Provided Care Provided: Adult Hospital Medicine
[2025-02-02 15:27] VITALS: BP 116/73
--- NOTE | 2025-02-02 15:58 | Communication Note ---
Date of Service: February 02, 2025 By CMS guidelines, a determination that the admission or continued stay is not medically necessary has been made by a member of the UR committee and a physician for this hospital stay, therefore a Code 44 will be completed and the Inpatient admission will be changed to outpatient.
[2025-02-02] MEDS ORDERED: cefTRIAXone SODIUM 2,000 MG/50 ML BAG IV SCH (16:00)
[2025-02-02 16:17] VITALS: PULSE 61
[2025-02-02] MEDS ORDERED: REMOVE NITRO-DUR PATCH SCH (21:00)
--- NOTE | 2025-02-03 16:29 | Electrocardiogram Report ---
Test Reason : Blood Pressure : */* mmHG Vent. Rate : 70 BPM Atrial Rate : 70 BPM P-R Int : 198 ms QRS Dur : 92 ms QT Int : 380 ms P-R-T Axes : 32 23 7 degrees QTcB Int : 410 ms Normal sinus rhythm Possible Inferior infarct (cited on or before 17-May-2018) Abnormal ECG When compared with ECG of 01-Feb-2025 15:25, (unconfirmed) No significant change was found Confirmed by Bay Mcgrath ([id number]) on 02/03/2025 4:29:33 PM Referred By: REFERRED SELF Confirmed By: Bay Mcgrath
--- NOTE | 2025-02-03 16:59 | Electrocardiogram Report ---
Test Reason : Blood Pressure : */* mmHG Vent. Rate : 103 BPM Atrial Rate : 103 BPM P-R Int : 172 ms QRS Dur : 88 ms QT Int : 316 ms P-R-T Axes : 46 4 11 degrees QTcB Int : 413 ms Sinus tachycardia with Premature atrial complexes Inferior infarct (cited on or before 17-May-2018) Abnormal ECG When compared with ECG of 17-May-2018 06:48, Premature atrial complexes are now Present Vent. rate has increased by 50 bpm Confirmed by Rekha Lundy ([id number]) on 02/03/2025 4:59:25 PM Referred By: REFERRED SELF Confirmed By: Rekha Lundy
--- NOTE | 2025-02-03 17:00 | Electrocardiogram Report ---
Test Reason : Blood Pressure : */* mmHG Vent. Rate : 101 BPM Atrial Rate : 101 BPM P-R Int : 170 ms QRS Dur : 90 ms QT Int : 326 ms P-R-T Axes : 40 2 13 degrees QTcB Int : 422 ms Sinus tachycardia Inferior infarct (cited on or before 17-May-2018) Abnormal ECG When compared with ECG of 01-Feb-2025 14:40, (unconfirmed) Premature atrial complexes are no longer Present Confirmed by Rekha Lundy (Taylor) on 02/03/2025 4:59:50 PM Referred By: REFERRED SELF Confirmed By: Rekha Lundy
== END 2025-02-02 17:45 | disposition home or self-care (01) | DRG 303 ==
LOC: ED 14:31 → EDINP 17:56 → SUATTDRO 17:56 → 2E 22:30